=== PATIENT | female | born 1975 | race Two or more races ===

== ENCOUNTER 2020-04-18 16:14 | Emergency (ER) | payer MEDICAID ==
[~2020-04-18] VITALS: Ht 152.4 cm; Wt 74.8 kg
--- NOTE | 2020-04-18 16:30 | NUR ---
[id number], from work, c/o chest tightness on and off radiating to left shoulder and neck 1hr [employer], 3/10 pain scale at this time. Patient a/ox4, breathing even and unlabored, no sob noted, needs attended. Kept comfortable.
[2020-04-18 16:53] LABS: BASOPHILS % (AUTO) 0.3 % (0.0-2.0); EOSINOPHILS % (AUTO) 0.5 % (0.0-6.0); HEMATOCRIT 37 % (33-45); HEMOGLOBIN 11.8 g/dL (11.5-14.8); LYMPHOCYTES # (AUTO) 1.8 /CMM (0.8-4.8); LYMPHOCYTES % (AUTO) 28.3 % (20.0-44.0); MEAN CORPUSCULAR HGB CONC 32 g/dl (31.0-36.0); MEAN CORPUSCULAR VOLUME 79 fL (82-100); MONOCYTES # (AUTO) 0.7 /CMM (0.1-1.30); MONOCYTES % (AUTO) 11.4 % (2.0-12.0); NEUTROPHILS # (AUTO) 3.9 /CMM (1.8-8.9); NEUTROPHILS % (AUTO) 59.5 % (43.0-81.0); PLATELET COUNT (AUTO) 327 /CMM (150-450); RED BLOOD CELL COUNT(AUTO) 4.62 MIL/uL (4.0-5.2); WHITE BLOOD COUNT (AUTO) 6.5 K/uL (4.3-11.0)
[2020-04-18 17:00] LABS: CALCIUM, SERUM 8.1 mg/dL (8.5-10.1); CARBON DIOXIDE 29 mmol/L (21-32); CHLORIDE 104 mmol/L (98-107); CREATININE 0.6 mg/dL (0.6-1.3); GLUCOSE 104 mg/dL (74-106); POTASSIUM 3.1 mmol/L (3.5-5.1); SODIUM SERUM 139 mmol/L (136-145); UREA NITROGEN, BLOOD 12 mg/dL (7-18)
[2020-04-18] MEDS ORDERED: POTASSIUM CHLORIDE 20 MEQ TAB.PRT.SR PO ONE (17:30)
--- NOTE | 2020-04-18 17:43 | NUR ---
patient a/ox4, resting, no distress noted.
--- NOTE | 2020-04-18 18:01 | NUR ---
Ford nelson in [facility] - 04/18/20 at 1802 by BRONSON nirmal eta 20 mins.
[2020-04-18 20:48] VITALS: BP 158/93
--- NOTE | 2020-04-18 20:48 | NUR ---
IV removed. Catheter intact and site benign. Pressure and 4x4 applied to site. No bleeding noted.Patient discharged to home in stable condition. RX AND Written and verbal after care instructions given. Patient verbalizes understanding of instruction.
== END 2020-04-18 20:53 | disposition home or self-care (01) ==
LOC: ER 16:20 → EDBD 16:20 → ER 20:53
DX: R07.89 Other chest pain (principal); E87.6 Hypokalemia
CPT/HCPCS: 36415; 71045-TC; 80048-TC; 84484-TC; 85025-TC